=== PATIENT | female | born 1990 | race Two or more races ===

== ENCOUNTER 2020-09-23 14:12 | Emergency (ER) | payer MEDICAID, OTHER ==
[~2020-09-23] VITALS: Ht 172.7 cm; Wt 95.3 kg
[2020-09-23 15:26] LABS: Urine Bacteria FEW /hpf (None Seen); Urine Blood Negative /uL (Negative); Urine Specific Gravity 1.002 (1.001-1.035); Urine WBC <1 /hpf (0 - 5)
[2020-09-23 15:38] LABS: Alcohol, Urine < 3.0 mg/dL (0-10); Amphetamine Screen, Urine NEGATIVE (NEGATIVE); Barbiturate Scree,Urine NEGATIVE (NEGATIVE); Benzodiazephine Screen, Urine NEGATIVE (NEGATIVE); Cocaine Screen, Urine NEGATIVE (NEGATIVE); Opiate Scree,Urine NEGATIVE (NEGATIVE); Phencyclidine Screen, Urine NEGATIVE (NEGATIVE)
[2020-09-23 15:44] LABS: Basophils # (auto) 0.1 10 ^3/uL (0-0.2); Basophils % (auto) 0.6 % (0.0-2.0); Eosinophils # (auto) 0.1 10 ^3/uL (0-0.8); Eosinophils % (auto) 0.9 % (0.0-7.0); Hematocrit 39.9 % (36.0-46.0); Hemoglobin 13.6 g/dL (12.2-16.2); Lymphocytes % (auto) 19.2 % (10.0-50.0); Mean Corpuscular Volume 85.4 fL (80.0-100.0); Monocytes # (auto) 0.6 10 ^3/uL (0-1.3); Monocytes % (auto) 5.7 % (0.0-12.0); Neutrophils # (auto) 7.6 10 ^3/uL (1.6-8.6); Neutrophils % (auto) 73.6 % (37.0-80.0); Nucleated Red Blood Cells % 0.1 %; Platelet Count (auto) 358 10^3/uL (140-450); Red Blood Cells 4.67 10^6/uL (4.0-5.20); Red Cell Distribution Width 13.4 % (11.8-14.3); White Blood Cell 10.4 10^3/uL (4.4-10.8)
[2020-09-23 15:51] LABS: Cannabinoid Screen, Urine NEGATIVE (NEGATIVE)
[2020-09-23] MEDS ORDERED: SODIUM CHLORIDE 0.9% 1,000 ML IV ONE (16:00)
[2020-09-23 16:04] LABS: Albumin 3.6 g/dL (3.4-5.0); Calcium 9.1 mg/dL (8.5-10.1); Potassium 3.5 mmol/L (3.5-5.1); Salicylate < 1.7 mg/dL (2.8-20.0)
[2020-09-23 16:06] LABS: BUN/Creatinine Ratio 15.2
[2020-09-23 16:07] LABS: Acetaminophen < 2.0 ug/mL (10-30)
[2020-09-23 16:09] LABS: Bilirubin, Total 0.4 mg/dL (0.2-1.0)
[2020-09-23 16:54] LABS: Magnesium 2.1 mg/dL (1.6-2.6)
[2020-09-23 17:02] LABS: Beta HCG, Quantitative < 1 mlU/mL (1-3)
[2020-09-23] MEDS ORDERED: clonazePAM 0.5 MG TAB PO ONE (21:00)
[2020-09-23] MEDS: risperiDONE 1 MG TAB PO SCH (22:25)
[2020-09-24] MEDS ORDERED: CITALOPRAM HYDROBR 20 MG TAB PO SCH (10:00)
[2020-09-24] MEDS: risperiDONE 1 MG TAB PO SCH (10:00)
[2020-09-24 12:11] VITALS: BP 114/59
== END 2020-09-24 12:20 ==
LOC: EDBD 14:12 → ER 14:12
DX: R45.851 Suicidal ideations (principal); F33.1 Major depressive disorder, recurrent, moderate; R10.9 Unspecified abdominal pain; E66.9 Obesity, unspecified; Z20.822 Contact with and (suspected) exposure to COVID-19
CPT/HCPCS: 36415; 71046; 74176; 80053; 80307; 80320; 80329; 81001; 81025; 83690; 83735; 84443; 84702; 85025; 87426; 93005